=== PATIENT | female | born 1985 | race Caucasian/White ===

== ENCOUNTER 2016-06-22 15:16 | Inpatient (IN) | payer SELFPAY ==
[~2016-06-22] VITALS: Ht 152.4 cm; Wt 75.1 kg
[~2016-06-22 15:16] MED LIST: FER325 PO; IBUP800T25 PO
[2016-06-22 15:29] VITALS: Ht 152.4 cm; Wt 75.1 kg
[2016-06-22 15:30] VITALS: BP 112/66; PULSE 88; RESP 19
[2016-06-22] MEDS ORDERED: LACTATED RINGER'S 1,000 ML IV ONE (16:30)
[2016-06-22 16:44] LABS: BASOPHILS % 0.3 % (0.0-2.0); EOSINOPHILS # 0.1 10^3/ul (0.0-0.5); EOSINOPHILS % 0.6 % (0.0-7.0); HEMATOCRIT 32.4 % (37.0-47.0); HEMOGLOBIN 10.9 g/dl (12.0-16.0); LYMPHOCYTES # 2.4 10^3/ul (0.8-2.9); LYMPHOCYTES % 23.2 % (15.0-51.0); MEAN CORPUSCULAR HEMOGLOBIN 30.2 pg (29.0-33.0); MEAN CORPUSCULAR HGB CONC 33.6 g/dl (32.0-37.0); MEAN PLATELET VOLUME 9.6 fl (7.4-10.4); MONOCYTE # 0.5 10^3/ul (0.3-0.9); MONOCYTES % 4.9 % (0.0-11.0); NEUTROPHIL # 7.3 10^3/ul (1.6-7.5); PLATELET COUNT 201 10^3/UL (140-440); UNCORRECTED WBC 10.4 10^3/ul (4.8-10.8); WHITE BLOOD COUNT 10.4 10^3/ul (4.8-10.8)
[2016-06-22 16:45] LABS: CONDITION 1
[2016-06-22 16:52] LABS: INR 0.91; PROTIME 12.2 Sec (12.2-14.2)
[2016-06-22 16:53] LABS: PARTIAL THROMBOPLASTIN TIME 28.1 Sec (25.0-35.0)
[2016-06-22] MEDS ORDERED: TERBUTALINE 1 ML ONE (16:53)
[2016-06-22] MEDS ORDERED: TERBUTALINE 1 MG/ML INJ SC ONE ×2 (17:00→18:30)
[2016-06-22] MEDS ORDERED: OXYTOCIN 30 UNITS/LR 500 ML IV SCH (19:30)
[2016-06-22] MEDS ORDERED: MISOPROSTOL 200 MCG TAB PR PRN (19:30)
[2016-06-22] MEDS ORDERED: OXYTOCIN 30 UNITS/LR 500 ML IV PRN (19:30)
[2016-06-22] MEDS ORDERED: METHYLERGONOVINE 0.2 MG INJ IM PRN (19:30)
[2016-06-22] MEDS ORDERED: CARBOPROST 250 MCG INJ IM PRN (19:30)
[2016-06-22] MEDS: NIFEdipine 10 MG CAP PO SCH (21:41)
[2016-06-23] MEDS: LACTATED RINGER'S 1,000 ML IV SCH ×3 (00:08→14:23)
[2016-06-23] MEDS: NIFEdipine 10 MG CAP PO SCH ×4 (03:45→17:44)
[2016-06-23] MEDS ORDERED: ACETAMINOPHEN 500 MG TAB PO ONE (05:27)
--- NOTE | 2016-06-23 14:29 | HP ---
Date/Time of Note Date/Time of Note DATE: 06/23/16 TIME: 14:24 OB - History Hx of Present Free Text/Dictation admitted at 36.5 weeks with previous C/S X 2 wirh labor pains Chief Complaint: labor pains Estimated Due Date: Jul 18, 2016 : 5 Para: 3 Spontaneous : 1 Care: Good Care Ultrasounds: Normal mid trimester US Obstetrical Complications: None, Other (partial posterior placenta previa ) Medical Complications: Other (previous C/S X 2 ) Past Family/Social History * Past Medical, Surgical, Family and Obstetric Histories reviewed from chart. Blood Type: A+ Rubella: immune RPR/VDRL: Negative GBS Status: Negative HBsAG: Negative OB Admission Exam Vital Signs Vital Signs Vital Signs Date Time Temp Pulse Resp B/P Pulse Ox O2 Delivery O2 Flow Rate FiO2 06/22/16 15:30 98.2 88 19 112/66 Room Air Physical Exam HEENT: WNL Heart: Rhythm Normal Lungs: Clear, Equal Abdomen: WNL Extremities: Normal Reflexes: Normal Membranes: Intact Heart Rate: 150's Accelerations: Accelerations Present Decelerations: No Decelerations Varibility: Marked Contractions on Admission: 6-10 Minutes Apart Date/Time Contractions Began: 06/22/2015 Frequency of Contractions: q5 Duration: >60 seconds Last 72 hours Lab Results CBC & BMP 06/22/16 16:22 OB Assessment/Plan Reason for admission: labor Other Assessment: 36.5 weeks gestation previous C/S X 2 Other plan: try soft tocolysis: Nifedipine NADIR WALTON MD Jun 23, 2016 14:29
[2016-06-23] MEDS ORDERED: BETAMET NA PHOS/AC(6 MG/ML) 5ML INJ IM SCH (14:30)
--- NOTE | 2016-06-23 17:36 | DS ---
Date/Time of Note Date/Time of Note DATE: 06/23/16 TIME: 17:34 Obstetrical Discharge Record Final Diagnosis Final Diagnosis: not delivered Other Final Diagnosis uterine contractions Complications Tocolytics: Terbutaline, Other (Nifedipine ) Condition on Discharge Physical Assessment Last Vitals: se nurses notes Voiding: Yes Bowel Movement: Yes Breast: Soft, non-tender, Filling Fundus: Other (Gravid ) Abdomen and Incision: Gravid Episiotomy: NA Calf Tenderness: No Patient Condition: Good (patient stopped UCs . Will D/C home on PO Nifedipine ) NADIR WALTON MD Jun 23, 2016 17:36
--- NOTE | 2016-06-23 17:38 | PD.PPDC ---
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 Will D/C home on PO Nifedipine ) Diet Diet: Resume Regular Diet Activity/Restrictions Activity: Bedrest May Shower Restrictions: No Exercising Nothing in the Vagina Return to Work or School: October 18, 2016 Follow-up Follow-up with Physician: 1, Day/Days Provider Information: in clinic for F/U Return to clinic for [employer] Instructions: Worsening abdominal pain Excessive Vaginal Bleeding NADIR WALTON MD Jun 23, 2016 17:38
[2016-06-23] MEDS ORDERED: NIFEdipine PO (17:39)
== END 2016-06-23 18:00 | disposition home or self-care (01) | DRG 778 ==
LOC: OBT 15:16 → L-D 15:18 → OBT 19:05 → L-D 19:05
PROVIDERS: ADMIT Obstetrics & Gynecology; ATTEND Obstetrics & Gynecology
DX: O60.03 Preterm labor without delivery, third trimester (principal)
CPT/HCPCS: 85025; 85610; 85730; 86592; 86850; 86900; 86901; G0463; J0702; J3105; J7120

== ENCOUNTER 2016-06-24 13:00 | Outpatient (CLI) | payer MEDICAID ==
[~2016-06-24] VITALS: Ht 152.4 cm; Wt 75.9 kg
[~2016-06-24 13:00] MED LIST changes: -IBUP800T25 PO; +NIFEdipine PO
[2016-06-24 13:39] VITALS: Ht 152.4 cm; Wt 75.9 kg
[2016-06-24 13:40] VITALS: BP 98/56; PULSE 89; RESP 18
[2016-06-24] MEDS ORDERED: NIFEdipine 10 MG CAP PO STA (14:33)
--- NOTE | 2016-06-24 14:44 | RADRPT ---
PROCEDURE: US OB CLINICAL INDICATION: Decelerations, estimated weight, amniotic fluid TECHNIQUE: Multiple sonographic images of the pelvis were obtained. The images were reviewed on a PACS workstation. COMPARISON: Obstetrical ultrasound from 04/22/2016 FINDINGS: The cervix is not well visualized. There is a single viable intrauterine gestation. Cardiac activity is present with 128 beats per minute. There is a vertex presentation. The placenta is right lateral in location. There is no evidence for an abruption or placenta previa. There is a subjectively normal amount of amniotic fluid. Measurements were made in order to determine age. The results are as follows (cm): BPD =8.95 HC =31.53 AC =33.71 FL =7.21 Estimated gestational age by ultrasound of approximately 36 weeks, 4 days. The estimated date of delivery by ultrasound is 07/18/2016. Reported gestational age by LMP of approximately 37 weeks, 0 days. The reported date of delivery by LMP is 07/15/2016. EFW = 3096 grams (57th percentile) IMPRESSION: Single viable intrauterine gestation of approximately 36 weeks, 4 days . The estimated date of delivery is 07/18/2016 . Dating by ultrasound is within 3 days of dating by LMP. Estimated weight in the 57th percentile. There is a subjectively normal amount of amniotic fluid. RPTAT: EE Physician Rachel Date Time Electronically viewed and signed by Physician Rachel on 06/24/2016 14:44 RA/
--- NOTE | 2016-06-24 14:48 | QN ---
Documentation Comment 30 y/o female sent in from clinic because of low baseline FHTs at 37 weeks NST R DANELLE nl will repeat C/S at 39 weeks NADIR WALTON MD Jun 24, 2016 14:48
--- NOTE | 2016-06-24 14:51 | RADRPT ---
PROCEDURE: US OB biophysical profile. CLINICAL INDICATION: Decelerations TECHNIQUE: Multiple sonographic images of the pelvis were obtained. The images were reviewed on a PACS workstation. COMPARISON: No prior studies are available for comparison. FINDINGS: There is a single viable intrauterine gestation. Cardiac activity is present with 128 beats per min [place]. There is a vertex presentation. The placenta is right lateral in location. There is no evidence of placental abruption. There is a normal amount of amniotic fluid with an DANELLE = 15.1 cm. Biophysical profile: movement 2/2 tone 2/2. breathing 2/2 DANELLE 2/2 Total 01/25 RPTAT: AA . IMPRESSION: Normal biophysical profile. Normal DANELLE of 15.1 cm. Physician Rachel Date Time Electronically viewed and signed by Physician Rachel on 06/24/2016 14:51 /
--- NOTE | 2016-06-24 15:40 | TRIAGE ---
OB Triage Datetime Report Generated by CPN: 06/24/2016 15:40 Datetime: 06/24/2016 15:26 Stage of : OB Triage Labor Evaluation Frequency: x2 Monitor Mode: External Duration (sec)2399: 120-130 Quality: Mild Resting Tone [place]: Relaxed Heart Rate FHR Baseline Rate: 120 Monitor Mode: External US FHR Baseline Changes: No Baseline Change Variability: Moderate 6-25 bpm Accelerations: 15X15 Decelerations: None Category: Category I Datetime: 06/24/2016 14:51 Stage of : OB Triage Datetime: 06/24/2016 14:48 Stage of : OB Triage Monitor Mode: External Monitor Mode: External US Datetime: 06/24/2016 14:43 Stage of : OB Triage Datetime: 06/24/2016 14:17 Stage of : OB Triage Datetime: 06/24/2016 14:00 Stage of : OB Triage Labor Evaluation Frequency: x3 Monitor Mode: External Duration (sec)2399: 50-110 Quality: Mild Resting Tone [place]: Relaxed Heart Rate FHR Baseline Rate: 120 Monitor Mode: External US Variability: Moderate 6-25 bpm Accelerations: 15X15 Decelerations: None Category: Category I Datetime: 06/24/2016 13:34 Monitor Mode: External Monitor Mode: External US Datetime: 06/24/2016 13:22 Monitor Mode: External Contraction Comments: TOCO changed Datetime: 06/24/2016 13:17 Assessment Type: Triage Maternal Assessment Level of Consciousness: Fully Conscious DTR's/Clonus: DTRs 1+; No Clonus Headache: Denies Blurred Vision: No Respiratory Effort: Unlabored Breath Sounds, Left: Clear and Equal Breath Sounds, Right: Clear and Equal Nausea/Vomiting: Denies RUQ Epigastric Pain: Denies Lower Extremities Edema: None Degree: None Upper Extremities Edema: None Degree: None Facial Edema: None Fall Risk Assessment History of Falling: (0) No Secondary Diagnosis: (15) Yes (Annotations: cs x 2 placenta previa) Ambulatory Aid: (0) Bedrest/Nurse Assist IV Therapy: (0) No Gait: (0) Normal/Bedrest/Immobile Mental Status: (0) Oriented to Own Ability Fall Score: 15 Fall Risk Score Definition: No Risk: No action required Datetime: 06/24/2016 13:16 Time of Arrival: 06/24/2016 12:49 EGA: 37.0 Arrived By: Ambulatory Arrived From: Dr. Valle Chief Complaint: Sent from clinic with orders rt audible decels x2. hX of placenta previa this pre gnancy Movement: Present Contractions: Denies/Absent Rupture of Membranes: Denies Vaginal Bleeding: None Vaginal Discharge: Denies Recent Sexual Intercouse: Denies Abdominal Trauma: Not Applicable Patient Complaints: Other Time Provider Notified: 06/24/2016 12:49 Provider Notified: THUY Initial Plan: VS, Prolonged efm, efw, bennie, placenta location Datetime: 06/24/2016 13:09 Monitor Mode: External Datetime: 06/24/2016 13:05 Stage of : OB Triage Monitor Mode: External US Datetime: 06/23/2016 17:44 Labor Evaluation Frequency: X2 Monitor Mode: External Quality: Moderate Pattern: Normal: <= 5 Contractions in 10 Minutes Resting Tone [place]: Relaxed Heart Rate FHR Baseline Rate: 150 Monitor Mode: External US Variability: Moderate 6-25 bpm Accelerations: 15X15 Decelerations: None Category: Category I Datetime: 06/23/2016 17:00 Stage of : Labor Labor Evaluation Frequency: x2 Monitor Mode: External Duration (sec)2399: 90-100 Quality: Strong Pattern: Normal: <= 5 Contractions in 10 Minutes Resting Tone [place]: Relaxed Heart Rate FHR Baseline Rate: 150 Monitor Mode: External US Variability: Moderate 6-25 bpm Accelerations: 15X15 Decelerations: None Category: Category I Datetime: 06/23/2016 16:00 Stage of : Labor Labor Evaluation Frequency: x2 Monitor Mode: External Duration (sec)2399: 90-100 Quality: Strong Pattern: Normal: <= 5 Contractions in 10 Minutes Resting Tone [place]: Relaxed Heart Rate FHR Baseline Rate: 150 Monitor Mode: External US Variability: Moderate 6-25 bpm Accelerations: 15X15 Decelerations: None Category: Category I Datetime: 06/23/2016 15:00 Stage of : Labor Labor Evaluation Frequency: x3 Monitor Mode: External Duration (sec)2399: 90-100 Quality: Strong Pattern: Normal: <= 5 Contractions in 10 Minutes Resting Tone [place]: Relaxed Heart Rate FHR Baseline Rate: 145 Monitor Mode: External US Variability: Moderate 6-25 bpm Accelerations: 15X15 Decelerations: None Category: Category I Datetime: 06/23/2016 14:00 Stage of : Labor Labor Evaluation Frequency: x3 Monitor Mode: External Duration (sec)2399: 90-100 Quality: Strong Pattern: Normal: <= 5 Contractions in 10 Minutes Resting Tone [place]: Relaxed Heart Rate FHR Baseline Rate: 140 Monitor Mode: External US Variability: Moderate 6-25 bpm Accelerations: 15X15 Decelerations: None Category: Category I Datetime: 06/23/2016 13:00 Stage of : Labor Temperature Route: Oral Labor Evaluation Frequency: x3 Monitor Mode: External Duration (sec)2399: 90-100 Quality: Strong Pattern: Normal: <= 5 Contractions in 10 Minutes Resting Tone [place]: Relaxed Heart Rate FHR Baseline Rate: 145 Monitor Mode: External US Variability: Moderate 6-25 bpm Accelerations: 15X15 Decelerations: None Category: Category I Datetime: 06/23/2016 12:01 Stage of : Labor Labor Evaluation Frequency: x2 Monitor Mode: External Duration (sec)2399: 100-120 Quality: Strong Pattern: Normal: <= 5 Contractions in 10 Minutes Resting Tone [place]: Relaxed Heart Rate FHR Baseline Rate: 140 Monitor Mode: External US Variability: Moderate 6-25 bpm Accelerations: 15X15 Decelerations: None Category: Category II Datetime: 06/23/2016 11:00 Stage of : Labor Labor Evaluation Frequency: x2 Monitor Mode: External Duration (sec)2399: 100-120 Quality: Strong Pattern: Normal: <= 5 Contractions in 10 Minutes Resting Tone [place]: Relaxed Heart Rate FHR Baseline Rate: 145 Monitor Mode: External US Variability: Moderate 6-25 bpm Accelerations: 15X15 Decelerations: Variable Category: Category II Pain Presence: Intermittent Pain Type: Contraction Pain Location: Abdomen Pain Relief Measures: Comfort Measures Pain Assessment Comments: pt states that she feels better at this moment. will let me know if ther e if pain becomes greater Datetime: 06/23/2016 10:24 Stage of : Antepartum Datetime: 06/23/2016 10:00 Stage of : Labor Labor Evaluation Frequency: 07-10 Monitor Mode: External Duration (sec)2399: 100 Quality: Strong Pattern: Normal: <= 5 Contractions in 10 Minutes Resting Tone [place]: Relaxed Heart Rate FHR Baseline Rate: 145 Monitor Mode: External US Variability: Moderate 6-25 bpm Accelerations: 15X15 Decelerations: None Category: Category I Pain Assessment Pain Scale: 7 Pain Presence: Intermittent Pain Type: Contraction Pain Location: Abdomen Pain Relief Measures: Comfort Measures Datetime: 06/23/2016 09:00 Stage of : Labor Labor Evaluation Frequency: 10-14 Monitor Mode: External Duration (sec)2399: 90 Quality: Strong Pattern: Normal: <= 5 Contractions in 10 Minutes Resting Tone [place]: Relaxed Heart Rate FHR Baseline Rate: 140 Monitor Mode: External US Variability: Moderate 6-25 bpm Accelerations: 15X15 Decelerations: None Category: Category I Pain Assessment Pain Scale: 7 Pain Presence: Intermittent Pain Type: Contraction Pain Location: Abdomen Pain Relief Measures: Comfort Measures Datetime: 06/23/2016 08:02 Stage of : Labor Assessment Type: Ongoing Assessment Maternal Assessment Level of Consciousness: Fully Conscious DTR's/Clonus: DTRs 2+; No Clonus Headache: Denies Blurred Vision: No Respiratory Effort: Unlabored; Regular Rhythm; Equal Expansion Breath Sounds, Left: Clear and Equal Breath Sounds, Right: Clear and Equal Nausea/Vomiting: Denies RUQ Epigastric Pain: Denies Lower Extremities Edema: None Degree: None Upper Extremities Edema: None Degree: None Facial Edema: None Temperature Route: Oral Fall Risk Assessment History of Falling: (0) No Secondary Diagnosis: (0) No Ambulatory Aid: (0) Bedrest/Nurse Assist IV Therapy: (0) No Gait: (0) Normal/Bedrest/Immobile Mental Status: (0) Oriented to Own Ability Fall Score: 0 Fall Risk Score Definition: No Risk: No action required Labor Evaluation Frequency: 10-14 Monitor Mode: External Duration (sec)2399: 90 Quality: Strong Pattern: Normal: <= 5 Contractions in 10 Minutes Resting Tone [place]: Relaxed Heart Rate FHR Baseline Rate: 145 Monitor Mode: External US Variability: Moderate 6-25 bpm Accelerations: 15X15 Decelerations: None Category: Category I Pain Assessment Pain Scale: 7 Pain Presence: Intermittent Pain Type: Contraction Pain Location: Abdomen Pain Relief Measures: Comfort Measures Datetime: 06/23/2016 07:11 Stage of : Labor Labor Evaluation Frequency: 2-5 Monitor Mode: External Duration (sec)2399: 80-180 Quality: Mild Pattern: Normal: <= 5 Contractions in 10 Minutes Resting Tone [place]: Relaxed Heart Rate FHR Baseline Rate: 135 Monitor Mode: External US FHR Baseline Changes: No Baseline Change Variability: Moderate 6-25 bpm Accelerations: 15X15 Decelerations: None Category: Category I Datetime: 06/23/2016 06:09 Stage of : Labor Labor Evaluation Frequency: 2-5 Monitor Mode: External Duration (sec)2399: 80-180 Quality: Mild Pattern: Normal: <= 5 Contractions in 10 Minutes Resting Tone [place]: Relaxed Heart Rate FHR Baseline Rate: 135 Monitor Mode: External US FHR Baseline Changes: No Baseline Change Variability: Moderate 6-25 bpm Accelerations: 15X15 Decelerations: None Category: Category I Datetime: 06/23/2016 05:09 Stage of : Labor Labor Evaluation Frequency: 2-5 Monitor Mode: External Duration (sec)2399: 80-180 Quality: Mild Pattern: Normal: <= 5 Contractions in 10 Minutes Resting Tone [place]: Relaxed Heart Rate FHR Baseline Rate: 135 Monitor Mode: External US Variability: Moderate 6-25 bpm Accelerations: 15X15 Decelerations: None Category: Category I Datetime: 06/23/2016 04:10 Stage of : Labor Labor Evaluation Frequency: 2-5 Monitor Mode: External Duration (sec)2399: 80-180 Quality: Mild Pattern: Normal: <= 5 Contractions in 10 Minutes Resting Tone [place]: Relaxed Heart Rate FHR Baseline Rate: 135 Monitor Mode: External US Variability: Moderate 6-25 bpm Accelerations: 15X15 Decelerations: None Category: Category I Datetime: 06/23/2016 03:11 Stage of : Labor Labor Evaluation Frequency: 2-5 Monitor Mode: External Duration (sec)2399: 80-180 Quality: Mild Pattern: Normal: <= 5 Contractions in 10 Minutes Resting Tone [place]: Relaxed Heart Rate FHR Baseline Rate: 135 Monitor Mode: External US Variability: Moderate 6-25 bpm Accelerations: 15X15 Decelerations: None Category: Category I Datetime: 06/23/2016 02:00 Labor Evaluation Frequency: 2-5 Monitor Mode: External Duration (sec)2399: 80-180 Quality: Mild Pattern: Normal: <= 5 Contractions in 10 Minutes Resting Tone [place]: Relaxed Heart Rate FHR Baseline Rate: 135 Monitor Mode: External US Variability: Moderate 6-25 bpm Accelerations: 15X15 Decelerations: None Category: Category I Datetime: 06/23/2016 01:00 Monitor Mode: External Quality: Mild Pattern: Normal: <= 5 Contractions in 10 Minutes Resting Tone [place]: Relaxed Heart Rate FHR Baseline Rate: 135 Monitor Mode: External US FHR Baseline Changes: No Baseline Change Variability: Moderate 6-25 bpm Accelerations: 15X15 Decelerations: None Category: Category I Datetime: 06/23/2016 00:00 Labor Evaluation Frequency: 4-9 Monitor Mode: External Duration (sec)2399: 90-130 Quality: Mild Pattern: Normal: <= 5 Contractions in 10 Minutes Resting Tone [place]: Relaxed Heart Rate FHR Baseline Rate: 145 Monitor Mode: External US FHR Baseline Changes: No Baseline Change Variability: Moderate 6-25 bpm Accelerations: 15X15 Decelerations: None Category: Category I Datetime: 06/22/2016 23:09 Stage of : Labor Maternal Assessment Level of Consciousness: Fully Conscious DTR's/Clonus: DTRs 2+; No Clonus Headache: Denies Breath Sounds, Left: Clear and Equal Breath Sounds, Right: Clear and Equal Nausea/Vomiting: Denies RUQ Epigastric Pain: Denies Labor Evaluation Frequency: 7-10 Monitor Mode: External Duration (sec)2399: 90-160 Quality: Moderate Pattern: Normal: <= 5 Contractions in 10 Minutes Resting Tone [place]: Relaxed Heart Rate FHR Baseline Rate: 155 Monitor Mode: External US FHR Baseline Changes: No Baseline Change Variability: Moderate 6-25 bpm Accelerations: 15X15 Decelerations: None Category: Category I Datetime: 06/22/2016 22:09 Stage of : Labor Maternal Assessment Level of Consciousness: Fully Conscious DTR's/Clonus: DTRs 2+; No Clonus Headache: Denies Breath Sounds, Left: Clear and Equal Breath Sounds, Right: Clear and Equal Nausea/Vomiting: Denies RUQ Epigastric Pain: Denies Temperature Route: Oral Labor Evaluation Frequency: 7-10 Monitor Mode: External Duration (sec)2399: 90-160 Quality: Moderate Pattern: Normal: <= 5 Contractions in 10 Minutes Resting Tone [place]: Relaxed Heart Rate FHR Baseline Rate: 150 Monitor Mode: External US FHR Baseline Changes: No Baseline Change Variability: Moderate 6-25 bpm Accelerations: 15X15 Decelerations: None Category: Category I Datetime: 06/22/2016 21:00 Stage of : Labor Maternal Assessment Level of Consciousness: Fully Conscious DTR's/Clonus: DTRs 2+; No Clonus Headache: Denies Breath Sounds, Left: Clear and Equal Breath Sounds, Right: Clear and Equal Nausea/Vomiting: Denies RUQ Epigastric Pain: Denies Temperature Route: Oral Labor Evaluation Frequency: IRREG Monitor Mode: External Duration (sec)2399: 60-90 Quality: Moderate Pattern: Normal: <= 5 Contractions in 10 Minutes Resting Tone [place]: Relaxed Heart Rate FHR Baseline Rate: 150 Monitor Mode: External US FHR Baseline Changes: No Baseline Change Variability: Moderate 6-25 bpm Accelerations: 15X15 Decelerations: None Category: Category I Datetime: 06/22/2016 20:00 Stage of : Labor Assessment Type: Admission Assessment Maternal Assessment Level of Consciousness: Fully Conscious DTR's/Clonus: DTRs 2+; No Clonus Headache: Denies Blurred Vision: No Respiratory Effort: Unlabored; Regular Rhythm; Equal Expansion Breath Sounds, Left: Clear and Equal Breath Sounds, Right: Clear and Equal Nausea/Vomiting: Denies RUQ Epigastric Pain: Denies Lower Extremities Edema: None Degree: None Upper Extremities Edema: None Degree: None Facial Edema: None Temperature Route: Oral Fall Risk Assessment History of Falling: (0) No Secondary Diagnosis: (0) No Ambulatory Aid: (0) Bedrest/Nurse Assist IV Therapy: (0) No Gait: (0) Normal/Bedrest/Immobile Mental Status: (0) Oriented to Own Ability Fall Score: 0 Fall Risk Score Definition: No Risk: No action required Labor Evaluation Frequency: IRREG Monitor Mode: External Duration (sec)2399: 60-90 Quality: Moderate Pattern: Normal: <= 5 Contractions in 10 Minutes Resting Tone [place]: Relaxed Heart Rate FHR Baseline Rate: 150 Monitor Mode: External US FHR Baseline Changes: No Baseline Change Variability: Moderate 6-25 bpm Accelerations: 15X15 Decelerations: None Category: Category I Datetime: 06/22/2016 19:08 Stage of : OB Triage Datetime: 06/22/2016 19:00 Stage of : OB Triage Maternal Assessment Level of Consciousness: Fully Conscious DTR's/Clonus: DTRs 1+ Headache: Denies Nausea/Vomiting: Denies RUQ Epigastric Pain: Denies Labor Evaluation Frequency: X5 Monitor Mode: External Duration (sec)2399: 60-90 Quality: Mild Pattern: Normal: <= 5 Contractions in 10 Minutes Resting Tone [place]: Relaxed Heart Rate FHR Baseline Rate: 125 Monitor Mode: External US Variability: Moderate 6-25 bpm Accelerations: 15X15 Decelerations: None Category: Category I Pain Assessment Pain Scale: 3 Pain Presence: Intermittent Pain Type: Contraction Pain Location: Back Pain Goal: 3 Pain Relief Measures: Pain Medication Given Vaginal Exam Membrane Status: Intact Datetime: 06/22/2016 18:00 Stage of : OB Triage Maternal Assessment Level of Consciousness: Fully Conscious DTR's/Clonus: DTRs 1+ Headache: Denies Nausea/Vomiting: Denies RUQ Epigastric Pain: Denies Labor Evaluation Frequency: X5 Monitor Mode: External Duration (sec)2399: 60-90 Quality: Mild Pattern: Normal: <= 5 Contractions in 10 Minutes Resting Tone [place]: Relaxed Heart Rate FHR Baseline Rate: 125 Monitor Mode: External US Variability: Moderate 6-25 bpm Accelerations: 15X15 Decelerations: None Category: Category I Pain Assessment Pain Scale: 3 Pain Presence: Intermittent Pain Type: Contraction Pain Location: Back Pain Goal: 3 Pain Relief Measures: Pain Medication Given Vaginal Exam Membrane Status: Intact Datetime: 06/22/2016 17:00 Stage of : OB Triage Maternal Assessment Level of Consciousness: Fully Conscious DTR's/Clonus: DTRs 1+ Headache: Denies Nausea/Vomiting: Denies RUQ Epigastric Pain: Denies Labor Evaluation Frequency: 2-4 Monitor Mode: External Duration (sec)2399: 60-90 Quality: Mild Pattern: Normal: <= 5 Contractions in 10 Minutes Resting Tone [place]: Relaxed Heart Rate FHR Baseline Rate: 125 Monitor Mode: External US Variability: Moderate 6-25 bpm Accelerations: 15X15 Decelerations: None Category: Category I Pain Assessment Pain Scale: 3 Pain Presence: Intermittent Pain Type: Contraction Pain Location: Back Pain Goal: 3 Pain Relief Measures: Pain Medication Given Vaginal Exam Membrane Status: Intact Datetime: 06/22/2016 16:28 Stage of : OB Triage Maternal Assessment Level of Consciousness: Fully Conscious DTR's/Clonus: DTRs 1+ Headache: Denies Nausea/Vomiting: Denies RUQ Epigastric Pain: Denies Labor Evaluation Frequency: 2-4 Monitor Mode: External Duration (sec)2399: 60-90 Quality: Mild Pattern: Normal: <= 5 Contractions in 10 Minutes Resting Tone [place]: Relaxed Heart Rate FHR Baseline Rate: 125 Monitor Mode: External US Variability: Moderate 6-25 bpm Accelerations: 15X15 Decelerations: None Category: Category I Pain Assessment Pain Scale: 4 Pain Presence: Intermittent Pain Type: Contraction Pain Location: Back Pain Goal: 3 Pain Relief Measures: Pain Medication Given Vaginal Exam Membrane Status: Intact Datetime: 06/22/2016 15:56 Maternal Assessment Level of Consciousness: Fully Conscious DTR's/Clonus: DTRs 1+ Headache: Denies Blurred Vision: No Nausea/Vomiting: Denies RUQ Epigastric Pain: Denies Facial Edema: None Labor Evaluation Frequency: 3-4 Monitor Mode: External Duration (sec)2399: 60-80 Quality: Mild Pattern: Normal: <= 5 Contractions in 10 Minutes Resting Tone [place]: Relaxed Heart Rate FHR Baseline Rate: 125 Monitor Mode: External US Variability: Moderate 6-25 bpm Accelerations: 15X15 Decelerations: None Category: Category I Pain Assessment Pain Scale: 4 Pain Presence: Intermittent Pain Type: Contraction Pain Location: Back Pain Goal: 3 Pain Relief Measures: Pain Medication Given Vaginal Exam Membrane Status: Intact Datetime: 06/22/2016 15:55 Stage of : OB Triage Datetime: 06/22/2016 15:24 Assessment Type: Triage Maternal Assessment Level of Consciousness: Fully Conscious DTR's/Clonus: DTRs 2+; No Clonus Headache: Denies Blurred Vision: No Respiratory Effort: Unlabored; Regular Rhythm; Equal Expansion Breath Sounds, Left: Clear and Equal Breath Sounds, Right: Clear and Equal Nausea/Vomiting: Denies RUQ Epigastric Pain: Denies Lower Extremities Edema: None Degree: None Upper Extremities Edema: None Degree: None Facial Edema: None Fall Risk Assessment History of Falling: (0) No Secondary Diagnosis: (0) No Ambulatory Aid: (0) Bedrest/Nurse Assist IV Therapy: (0) No Gait: (0) Normal/Bedrest/Immobile Mental Status: (0) Oriented to Own Ability Fall Score: 0 Fall Risk Score Definition: No Risk: No action required Datetime: 06/22/2016 15:21 Time of Arrival: 06/22/2016 19:30 EGA: 36.5 Arrived By: Ambulatory Datetime: 06/22/2016 15:05 Time of Arrival: 06/22/2016 15:05 Arrived By: Ambulatory Arrived From: Office Chief Complaint: pt came in c/o craamping since this am Movement: Present Contractions: Irregular Time Contractions Began: 06/22/2016 03:00 Rupture of Membranes: Denies Vaginal Discharge: Denies Recent Sexual Intercouse: Denies Abdominal Trauma: Not Applicable Patient Complaints: Cramping Additional Patient Complaints: none Initial Plan: monitor
== END 2016-06-24 15:34 | disposition home or self-care (01) ==
LOC: OBT 13:00 → L-D 13:00 → OBT 15:34
PROVIDERS: ATTEND Obstetrics & Gynecology
DX: O76 Abnormality in fetal heart rate and rhythm complicating labor and delivery (principal); O34.219 Maternal care for unspecified type scar from previous cesarean delivery; Z3A.37 37 weeks gestation of pregnancy
CPT/HCPCS: 76815; 76818; Z7500; Z7610; G0463

== ENCOUNTER 2016-06-30 21:57 | Inpatient (IN) | payer MEDICAID ==
[~2016-06-30] VITALS: Ht 152.4 cm; Wt 76.6 kg
[2016-06-30 22:28] VITALS: Ht 152.4 cm; Wt 76.6 kg
[2016-06-30 22:29] VITALS: BP 115/62; PULSE 92; RESP 18
[2016-06-30] MEDS ORDERED: PREN1TAB62 PO (22:33)
[2016-06-30] MEDS ORDERED: CITRACAL PO (22:34)
[2016-06-30] MEDS: LACTATED RINGER'S 1,000 ML IV SCH (23:45)
[2016-07-01 00:12] LABS: BASOPHILS % 0.3 % (0.0-2.0); EOSINOPHILS # 0.1 10^3/ul (0.0-0.5); EOSINOPHILS % 1.3 % (0.0-7.0); HEMATOCRIT 30.9 % (37.0-47.0); HEMOGLOBIN 10.7 g/dl (12.0-16.0); LYMPHOCYTES # 2.9 10^3/ul (0.8-2.9); LYMPHOCYTES % 27.7 % (15.0-51.0); MEAN CORPUSCULAR HEMOGLOBIN 30.9 pg (29.0-33.0); MEAN CORPUSCULAR HGB CONC 34.5 g/dl (32.0-37.0); MEAN CORPUSCULAR VOLUME 89.6 fl (82.0-101.0); MEAN PLATELET VOLUME 9.1 fl (7.4-10.4); MONOCYTE # 0.7 10^3/ul (0.3-0.9); MONOCYTES % 6.9 % (0.0-11.0); NEUTROPHIL # 6.7 10^3/ul (1.6-7.5); NEUTROPHILS % 63.8 % (39.0-77.0); PLATELET COUNT 227 10^3/UL (140-440); RED BLOOD COUNT 3.45 10^6/ul (4.20-5.40); RED CELL DISTRIBUTION WIDTH 13.9 % (11.5-14.5); UNCORRECTED WBC 10.5 10^3/ul (4.8-10.8); WHITE BLOOD COUNT 10.5 10^3/ul (4.8-10.8)
[2016-07-01 00:14] LABS: CONDITION 1
[2016-07-01] MEDS ORDERED: OXYTOCIN 30 UNITS/LR 500 ML IV PRN ×2 (01:00→13:00)
[2016-07-01] MEDS ORDERED: CARBOPROST 250 MCG INJ IM PRN ×2 (01:00→13:00)
[2016-07-01] MEDS ORDERED: MISOPROSTOL 200 MCG TAB PR PRN ×2 (01:00→13:00)
[2016-07-01] MEDS ORDERED: OXYTOCIN 30 UNITS/LR 500 ML IV SCH (01:00)
[2016-07-01] MEDS ORDERED: METHYLERGONOVINE 0.2 MG INJ IM PRN ×2 (01:00→13:00)
[2016-07-01] MEDS ORDERED: CEFAZOLIN 2 GM/50 ML (PMX) 50 ML IV SCH (01:00)
[2016-07-01 01:28] LABS: INR 0.96; PROTIME 12.8 Sec (12.2-14.2)
[2016-07-01 01:29] LABS: PARTIAL THROMBOPLASTIN TIME 28.1 Sec (25.0-35.0)
[2016-07-01] MEDS: LACTATED RINGER'S 1,000 ML IV SCH ×6 (02:48→20:40)
--- NOTE | 2016-07-01 02:51 | RADRPT ---
PROCEDURE: ULTRASOUND BIOPHYSICAL PROFILE CLINICAL INDICATION: 30-year-old female with spotting for viability. TECHNIQUE: Multiple sonographic images were obtained in order to perform a biophysical profile The images were reviewed on a PACS workstation. COMPARISON: Ultrasound biophysical profile June 24, 2016. FINDINGS: The cervix appears closed with a length of 3.9 cm measured transvaginally. There is a single viable intrauterine gestation. There is a vertex presentation. Cardiac activity is present at 157 beats p er minute. The placenta is right lateral. The results of the biophysical profile are as follows: breathing movement = 2/2 Gross body movement = 2/2 tone = 2/2 Qualitative amniotic fluid volume = 2/2 Amniotic fluid index equals 12.0 cm. This yields a biophysical profile score of 8/8. IMPRESSION: Biophysical profile score is 8/8. .Favio Mathews MD, Date Time Electronically viewed and signed by .Favio Mathews MD, on 07/01/2016 02:51 .Cori/
[2016-07-01] MEDS ORDERED: TERBUTALINE 1 MG/ML INJ SC ONE (06:30)
[2016-07-01] MEDS ORDERED: AMPICILLIN 2 GM/NS (PMX) 100 ML ONE (07:19)
[2016-07-01] MEDS ORDERED: AMPICILLIN 2 GM/NS (PMX) 100 ML IV ONE (07:30)
[2016-07-01] MEDS ORDERED: PHENYLephrine (100 MCG/ML) 5ML SYG ONE ×3 (08:31→09:42)
[2016-07-01] MEDS ORDERED: FENTAnyl 50 MCG/ML VIAL ONE (08:31)
[2016-07-01] MEDS ORDERED: morphine SULFATE/PF (10 MG/10 ML) INJ ONE (08:31)
[2016-07-01] MEDS ORDERED: ONDANSETRON 4 MG INJ ONE (09:33)
[2016-07-01] MEDS ORDERED: DIPHENHYDRAMINE 50 MG INJ ONE (09:33)
[2016-07-01] MEDS ORDERED: DEXAMETHASONE 4 MG/ML 1 ML INJ ONE (09:33)
[2016-07-01] MEDS ORDERED: MIDAZOLAM 1 MG/ML 2 ML INJ ONE (09:42)
--- NOTE | 2016-07-01 10:09 | HP ---
Date/Time of Note Date/Time of Note DATE: 07/01/16 TIME: 10:02 OB - History Hx of Present Free Text/Dictation admitted in early labor at 38 weeks with previous C/S X2 Chief Complaint: uterine contractions and vaginal bleeding Estimated Due Date: Jul 17, 2016 : 4 Para: 3 Care: Good Care Ultrasounds: Normal mid trimester US Obstetrical Complications: Other (placenta previa: resolved ) Medical Complications: Other (previous C/S X 2 ) Past Family/Social History * Past Medical, Surgical, Family and Obstetric Histories reviewed from chart. Blood Type: A+ Rubella: immune RPR/VDRL: Negative GBS Status: Negative HBsAG: Negative OB Admission Exam Vital Signs Vital Signs Vital Signs Date Time Temp Pulse Resp B/P Pulse Ox O2 Delivery O2 Flow Rate FiO2 06/30/16 22:29 98.1 92 18 115/62 Room Air Physical Exam HEENT: WNL Heart: Rhythm Normal Lungs: Clear, Equal Abdomen: WNL Extremities: Normal Reflexes: Normal Cervical Dilatation: 1cm Effacement: 50% Station: -3 Membranes: Intact Heart Rate: 150's Accelerations: Accelerations Present Decelerations: No Decelerations Varibility: Moderate Contractions on Admission: 6-10 Minutes Apart Date/Time Contractions Began: 06/30/2015 Frequency of Contractions: q 10 Duration: >60 seconds Intensity: Mild Last 72 hours Lab Results CBC & BMP 06/30/16 23:45 OB Assessment/Plan Other Assessment: 37 + weeks gestation previous C/S X 2 labor contractions with changing cervix Other plan: repeat C/S NADIR WALTON MD Jul 01, 2016 10:09
--- NOTE | 2016-07-01 10:12 | OPR ---
Operative Report Planned Procedure Procedure date Jul 01, 2016 Procedure(s) repeat C/S Performed by: NADIR WALTON MD Assisting provider: DEE PAULINO MD Anesthesiologist: ELLEN VILLANUEVA MD Pre-procedure diagnosis term gestation previous C/S X 2 labor pains Anesthesia Type: spinal Procedure Description Under satisfactory anaesthesia a Pfannenstiel incision was made two fingerbreadth above and parallel to the symphysis of pubis around the previous scar and previous scar was removed Incision was extended laterally to the border of the Recti muscles on either sides. Incision was carried down with sharp and blunt dissection until fascia was reached. Anterior Recti muscle fascia was incised in mid portion and incision extended laterally to the border of skin incision. Fascia was mobilized from muscle superiorly and Recti muscles were from midline using sharp and blunt dissection. Peritoneum was visualized; Avoiding bowel and bladder it was incised . Incision was extended superiorly and inferiorly. Bladder blade was placed. Posterior peritoneum covering the lower segment of the uterus and lower segment of the uterus were incised.Low transverse uterine incision was made on lower segment of the uterus. Incision extended laterally to the border of Round Lig. on either sides and baby was delivered from OT. position . Amniotic fluid appeared clear. Cord blood was obtained and cord had 3 vessels . Placenta was delivered spontaneously and appeared intact and complete. Intrauterine cavity was rubbed with a laparotomy sponge. Uterine incision was closed in 2 layers using running stitches of No1 Monocryl. Hemostasis appeared secure. Ovaries and Fallopian tubes were within normal limits. Announcing needle, lap sponge and instrument count to be correct abdomen was closed in layers as follows: Peritoneum and Recti muscles with running stitches of 20 Vicryl. Fascia with running stitch of No 1 PDS. Subcutaneous tissue with running stitches of 20 Chromic and skin was closed using dannie. Patient tolerated the procedure well and was transferred to [facility] in good condition. Post-Procedure Post-procedure diagnosis S/P C/S Findings: Live Baby Specimen removed: No Complications: None Pt Condition post procedure: stable Disposition: PACU Physician Certification I, the undersigned physician, hereby certify that I have discussed the procedure described in this consent form with this patient (or the patient's legal claims service representative), including: * The risk and benefits of the procedure; * Any adverse reactions that may reasonably be expected to occur; * Any alternative efficacious methods of treatment which may be medically viable ; * The potential problems that may occur during recuperation; * Potential for blood transfusion and associated risks/benefits; and * Any research or economic interest I may have regarding this treatment. I further certify that the patient/legally responsible person was encouraged to ask question and that all questions were answered. NADIR WALTON MD Jul 01, 2016 10:11
[2016-07-01] MEDS ORDERED: ZOLPIDEM 5 MG TAB PO PRN ×2 (10:30→13:30)
[2016-07-01] MEDS ORDERED: DIPHENHYDRAMINE 50 MG INJ IV PRN ×2 (10:30→13:30)
[2016-07-01] MEDS ORDERED: NALOXONE (0.4 MG/ML) INJ IV PRN ×2 (10:30→13:30)
[2016-07-01] MEDS ORDERED: PROCHLORPERAZINE 10 MG INJ IV PRN (10:30)
[2016-07-01] MEDS ORDERED: HYDROmorphONE 1 MG/ML SYG IV PRN ×4 (10:30→13:30)
[2016-07-01] MEDS ORDERED: ONDANSETRON 4 MG INJ IV PRN ×2 (10:30→13:30)
[2016-07-01] MEDS ORDERED: AMPICILLIN 1 GM/NS (PMX) 50 ML IV SCH (11:30)
--- NOTE | 2016-07-01 12:17 | DELSUM ---
Delivery Summary A-C Datetime Report Generated by CPN: 07/01/2016 12:17 DELIVERY PERSONNEL Machine Attendant: Nam, Wenbing MATERNAL INFORMATION Delivery Anesthesia: Spinal Medications in Delivery: see anethesia records Estimated Blood Loss (ml): 800 Placenta Cultured: No Maternal Complications: None LABOR SUMMARY EDC: 07/15/2016 00:00 No. Babies in Womb: 1 Attempted: No Labor Anesthesia: None LABOR INFORMATION Reason for Induction: Not Applicable Oxytocin: N/A Group B Beta Strep: Negative Antibiotics # of Doses: 2 Antibiotics Time of Last Dose: 0915 Steroids Given: Full Course Reason Steroids Not Administered: Not Applicable MEMBRANES Membranes Rupture Method: Artificial Rupture of Membranes: 07/01/2016 09:32 Length of Rupture (hr): 0.00 Amniotic Fluid Color: Clear Amniotic Fluid Amount: Small Amniotic Fluid Odor: Normal STAGES OF LABOR Stage 3 hr: 0 Stage 3 min: 1 CSECTION DELIVERY Primary Indication: Other Other Primary Indication: prev. c/s in labor CSection Urgency: Emergency CSection Incidence: Repeat Labor: Labor Elective: Nonelective CSection Incision: Lower Uterine Transverse BABY A INFORMATION Delivery Date/Time: 07/01/2016 09:32 Method of Delivery: Born in Route : No : N/A Forceps: N/A Vacuum Extraction: N/A Shoulder Dystocia : No SHOULDER DYSTOCIA BABY A Delivery Date/Time: 07/01/2016 09:32 PRESENTATION/POSITION BABY A Presentation: Cephalic Cephalic Presentation: Vertex Vertex Position: Left Occipital Transverse Breech Presentation: N/A PLACENTA INFORMATION BABY A Placenta Delivery Time : 07/01/2016 09:33 Placenta Method of Delivery: Manual Removal Placenta Status: Delivered SCORES BABY A Heart Rate 1 min: >100 bpm Resp Effort 1 min: Good Cry Reflex Irritability 1 min: Cough/Sneeze/Pulls Away Muscle Tone 1 min: Active Motion Color 1 min: Blue/Pale Resuscitation Effort 1 min: Tactile Stimulation SCORE 1 MIN: 8 Heart Rate 5 min: >100 bpm Resp Effort 5 min: Good Cry Reflex Irritability 5 min: Cough/Sneeze/Pulls Away Muscle Tone 5 min: Active Motion Color 5 min: Body [place], Extremit Blue SCORE 5 MIN: 9 INFANT INFORMATION BABY A Gestational Age at Delivery: 38.0 Gestational Status: Early Term- 37- 38.6 Weeks Infant Outcome : Liveborn Condition : Stable Sex: Male IDENTIFICATION/MEDS BABY A ID Band Number: [id number] ID Band Location: Right Leg; Left Arm Sensor Applied: Yes Sensor Number: [id number] Sensor Location : Cord Clamp WEIGHT/LENGTH BABY A Birthweight (gm): 3610 Infant Weight (lb): 7 Infant Weight (oz): 15 Infant Length (in): 20.50 Length (cm): 52.07 CORD INFORMATION BABY A No. 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
--- NOTE | 2016-07-01 12:24 | OPRPT ---
Intraop Record Datetime Report Generated by CPN: 07/01/2016 12:23 Datetime: 07/01/2016 12:15 Sequential Compression Device: Yes Datetime: 07/01/2016 12:00 Sequential Compression Device: Yes Datetime: 07/01/2016 11:46 Sequential Compression Device: Yes Datetime: 07/01/2016 11:30 Sequential Compression Device: Yes Datetime: 07/01/2016 11:15 Sequential Compression Device: Yes Datetime: 07/01/2016 11:00 Sequential Compression Device: Yes Datetime: 07/01/2016 10:45 Sequential Compression Device: Yes Datetime: 07/01/2016 10:30 Sequential Compression Device: Yes Datetime: 07/01/2016 10:16 Sequential Compression Device: Yes Datetime: 07/01/2016 10:10 Sequential Compression Device: Yes Datetime: 07/01/2016 08:22 OR Number: 2 TIMES/PROCEDURE Arrive OR: 07/01/2016 08:55 Depart OR: 07/01/2016 10:07 Anesthesia Start: 07/01/2016 08:55 Anesthesia End: 07/01/2016 10:15 Surgery Start: 07/01/2016 09:27 Surgery End: 07/01/2016 10:01 Preoperative Dx: , 38weeks, prev. c/s in labor Surgical Procedure: Section Uterine Incision: 07/01/2016 09:32 PERSONNEL Surgeon: Josh Cedillo Scrub: Betty Bruce Anesthesia Care Provider: Js Arriaza Care: See Delivery Summary for Care Providers Anesthesia Type: Spinal ASA Level: II RISK FOR INJURY Mode of Arrival: Ambulate Procedure Time Out: Correct Patient Identity; Accurate Procedure Consent Form; Agreement on Procedu re to be Done; Addressed Need to Administer Antibiotics or Fluids for Irrigation; Safety Precautions Based on Patient History or Medication Use; Allergies Reviewed Preoperative Information: Preoperative Checklist Reviewed; Allergies Reviewed; NPO Status Verified RISK FOR ANXIETY/KNOW DEFICIT Emotional Status: Calm/Relaxed Interventions: Provided Education Based on Age and Identified Needs; Communicated Patient Concerns to Appropriate Members of the Health Care Team; Explained Sequence of Events and Perioperative Routi ne; Evaluated Response to Instructions RISK FOR PAIN Pain Teaching: Instructed on Pain Scale Pain Scale: 2.0 PREOPERATIVE OUTCOMES Preoperative Outcomes: Verbalizes/Indicates Decreased Anxiety, Ability to [place], Understanding of Pr ocedure and Sequence of Events. Questions Answered; Demonstrates Adequate Pain Management; Verbaliz es Comfort Related to Transfer/Transport RISK FOR INFECTION Skin Pre-Operative Site: Intact Clip: Clip Clip Location: lower abdominal Prep: Yes Prep By: divyaiu Prep Solution: Chlorohexadine Catheter: Gutiérrez Catheter Size: 16 Catheter Inserted By: wliu Surgical Wound Class: MW-Sgeob-Gsuclaiyhayi Dressing Type: Secured Gauze Risk for Impaired Skin Integrity Position in OR: Supine Bony Prominences Protection: Arms Tucked/Padded Positioning Devices: Wedge Risk for Hypothermia Warming Interventions: Warm [place](s) Risk for Injury Safety Straps Applied: Legs Sequential Compression Device: Yes Electrosurgical Unit: Yes Electrosurgical Unit Number: [id number] Bipolar Number: [id number] EXP 2018-03-09 Ground Pad Location: Right Anterior Thigh Coag Number: 50 Cut Number: 50 1st Count Sponge Count: Correct Needle Count: Correct Blade Count: Correct Instrument Count: Correct 2nd Count Sponge Count: Correct Needle Count: Correct Blade Count: Correct Instrument Count: Correct 3rd Count Sponge Count: Correct Needle Count: Correct Blade Count: Correct Instrument Count: Correct Final Count Sponge Count 4: Correct Needle Count 4: Correct Blade Count 4: Correct Instrument Count 4: Correct Surgeon Acknowledged Count: Yes Final Count Resolution: Count Correct Intraoperative Data Equipment: Non-Invasive Blood Pressure; Pulse Oximeter; EKG; Warming [place] Blood Products Given: No Implants/Prosthesis Implants/Prosthesis: N/A Grafts: N/A Irrigation Irrigants: NACL Specimens Specimens: N/A Cultures Cultures: N/A X-Ray X-Ray Taken: No Postoperative Skin: Warm; Dry Pain Scale: 0 Condition: Awake; Alert Temperature: 98.4 Operative Outcomes: Patient's Surgery Performed Using Aseptic Technique and in a Manner to Prevent Cross-Contamination; Skin Remains Smooth, Intact, Non-reddened, Non-irritated, Free of Bruising; Cor e Body Temperature Remains in Expected Range Transfer To: L_D Datetime: 06/30/2016 22:35 Drug Allergies/Reactions: No Known Allergy (06/30/2016) Datetime: 06/24/2016 13:43 Drug Allergies/Reactions: No Known Allergy (06/24/2016) Datetime: 06/22/2016 15:32 Drug Allergies/Reactions: No Known Allergy (06/22/2016) Datetime: 06/22/2016 15:23 Food Allergies/Reactions: none Latex Allergies/Reactions: No Latex Allergies Datetime: 04/22/2016 11:06 Drug Allergies/Reactions: No Known Allergy (02/07/2015)
--- NOTE | 2016-07-01 12:24 | DELSUM ---
Delivery Summary A-C Datetime Report Generated by CPN: 07/01/2016 12:23 DELIVERY PERSONNEL Plant Controls Specialist: Nam, Wenbing MATERNAL INFORMATION Delivery Anesthesia: Spinal Medications in Delivery: see anethesia records Estimated Blood Loss (ml): 800 Placenta Cultured: No Maternal Complications: None LABOR SUMMARY EDC: 07/15/2016 00:00 No. Babies in Womb: 1 Attempted: No Labor Anesthesia: None LABOR INFORMATION Reason for Induction: Not Applicable Oxytocin: N/A Group B Beta Strep: Negative Antibiotics # of Doses: 2 Antibiotics Time of Last Dose: 0915 Steroids Given: Full Course Reason Steroids Not Administered: Not Applicable MEMBRANES Membranes Rupture Method: Artificial Rupture of Membranes: 07/01/2016 09:32 Length of Rupture (hr): 0.00 Amniotic Fluid Color: Clear Amniotic Fluid Amount: Small Amniotic Fluid Odor: Normal STAGES OF LABOR Stage 3 hr: 0 Stage 3 min: 1 CSECTION DELIVERY Primary Indication: Other Other Primary Indication: prev. c/s in labor CSection Urgency: Emergency CSection Incidence: Repeat Labor: Labor Elective: Nonelective CSection Incision: Lower Uterine Transverse BABY A INFORMATION Delivery Date/Time: 07/01/2016 09:32 Method of Delivery: Born in Route : No : N/A Forceps: N/A Vacuum Extraction: N/A Shoulder Dystocia : No SHOULDER DYSTOCIA BABY A Delivery Date/Time: 07/01/2016 09:32 PRESENTATION/POSITION BABY A Presentation: Cephalic Cephalic Presentation: Vertex Vertex Position: Left Occipital Transverse Breech Presentation: N/A PLACENTA INFORMATION BABY A Placenta Delivery Time : 07/01/2016 09:33 Placenta Method of Delivery: Manual Removal Placenta Status: Delivered SCORES BABY A Heart Rate 1 min: >100 bpm Resp Effort 1 min: Good Cry Reflex Irritability 1 min: Cough/Sneeze/Pulls Away Muscle Tone 1 min: Active Motion Color 1 min: Blue/Pale Resuscitation Effort 1 min: Tactile Stimulation SCORE 1 MIN: 8 Heart Rate 5 min: >100 bpm Resp Effort 5 min: Good Cry Reflex Irritability 5 min: Cough/Sneeze/Pulls Away Muscle Tone 5 min: Active Motion Color 5 min: Body [place], Extremit Blue SCORE 5 MIN: 9 INFANT INFORMATION BABY A Gestational Age at Delivery: 38.0 Gestational Status: Early Term- 37- 38.6 Weeks Infant Outcome : Liveborn Condition : Stable Sex: Male IDENTIFICATION/MEDS BABY A ID Band Number: [id number] ID Band Location: Right Leg; Left Arm Sensor Applied: Yes Sensor Number: [id number] Sensor Location : Cord Clamp WEIGHT/LENGTH BABY A Birthweight (gm): 3610 Infant Weight (lb): 7 Infant Weight (oz): 15 Infant Length (in): 20.50 Length (cm): 52.07 CORD INFORMATION BABY A No. 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
[2016-07-01 12:30] VITALS: BP 104/65; PULSE 83; RESP 18
[2016-07-01] MEDS: CLINDAMYCIN 300 MG CAP PO SCH ×2 (12:58→18:00)
[2016-07-01] MEDS ORDERED: LANOLIN 7 GM TUBE TOP PRN (13:00)
[2016-07-01] MEDS ORDERED: ACETAMINOPHEN/CODEINE #3 TAB PO PRN (13:00)
[2016-07-01] MEDS ORDERED: NA PHOSPHATE/BIPHOS 133 ML ENEMA PR PRN (13:00)
[2016-07-01] MEDS: CEFAZOLIN 2 GM/50 ML (PMX) 50 ML IVPB SCH ×2 (13:19→21:24)
[2016-07-01] MEDS: KETOROLAC 30 MG INJ IV PRN (13:35)
[2016-07-01] MEDS: IBUPROFEN 800 MG TAB PO SCH ×2 (14:00→21:25)
[2016-07-01 16:26] VITALS: BP 108/64; PULSE 67; RESP 19
[2016-07-01 19:30] VITALS: BP 101/75; PULSE 78; RESP 20
[2016-07-01] MEDS: SENNA/DOCUSATE NA (8.6MG/50MG) TAB PO SCH (21:00)
[2016-07-02] VITALS: BP 110/64; PULSE 79; RESP 20
[2016-07-02] MEDS: LACTATED RINGER'S 1,000 ML IV SCH (01:11)
[2016-07-02 04:04] VITALS: BP 101/59; PULSE 77; RESP 20
[2016-07-02] MEDS: CEFAZOLIN 2 GM/50 ML (PMX) 50 ML IVPB SCH (04:29)
[2016-07-02] MEDS: KETOROLAC 30 MG INJ IV PRN (05:27)
[2016-07-02] MEDS: IBUPROFEN 800 MG TAB PO SCH ×3 (06:00→21:09)
[2016-07-02] MEDS: CLINDAMYCIN 300 MG CAP PO SCH ×4 (06:00→17:23)
[2016-07-02 07:34] LABS: BASOPHILS % 0.2 % (0.0-2.0); EOSINOPHILS # 0.1 10^3/ul (0.0-0.5); EOSINOPHILS % 0.8 % (0.0-7.0); HEMOGLOBIN 8.9 g/dl (12.0-16.0); LYMPHOCYTES # 3.1 10^3/ul (0.8-2.9); LYMPHOCYTES % 29.9 % (15.0-51.0); MEAN CORPUSCULAR HGB CONC 34.3 g/dl (32.0-37.0); MEAN CORPUSCULAR VOLUME 90.4 fl (82.0-101.0); MEAN PLATELET VOLUME 9.1 fl (7.4-10.4); MONOCYTE # 0.6 10^3/ul (0.3-0.9); MONOCYTES % 5.9 % (0.0-11.0); NEUTROPHIL # 6.6 10^3/ul (1.6-7.5); NEUTROPHILS % 63.2 % (39.0-77.0); PLATELET COUNT 198 10^3/UL (140-440); RED BLOOD COUNT 2.88 10^6/ul (4.20-5.40); RED CELL DISTRIBUTION WIDTH 13.5 % (11.5-14.5); UNCORRECTED WBC 10.4 10^3/ul (4.8-10.8); WHITE BLOOD COUNT 10.4 10^3/ul (4.8-10.8)
[2016-07-02 07:45] VITALS: BP 106/54; PULSE 74; RESP 19
[2016-07-02 08:01] LABS: CONDITION 1
[2016-07-02] MEDS: SENNA/DOCUSATE NA (8.6MG/50MG) TAB PO SCH ×2 (09:28→21:09)
[2016-07-02] MEDS ORDERED: BISACODYL 10 MG SUPP PR ONE (09:30)
[2016-07-02 11:58] VITALS: BP 110/52; PULSE 70; RESP 18
[2016-07-02] MEDS: OXYCODONE/ACETAMINOPHEN (5/325) TAB PO PRN ×2 (14:38→23:53)
[2016-07-02 16:00] VITALS: BP 100/58; PULSE 87; RESP 18
--- NOTE | 2016-07-02 16:45 | PN ---
Date/Time of Note Date/Time of Note DATE: 07/02/16 TIME: 16:41 Assessment/Plan VTE Prophylaxis VTE Prophylaxis Intervention: ambulation Lines/Catheters IV Catheter Type (from Nrs): Peripheral IV Assessment/Plan Assessment/Plan S/P C/S POD # 1 will advance diet and ambulate Subjective 24 Hr Interval Summary NO BM passing flatus Exam/Review of Systems Vital Signs Vitals Vital Signs Date Time Temp Pulse Resp B/P Pulse Ox O2 Delivery O2 Flow Rate FiO2 07/02/16 16:00 98.0 87 18 100/58 07/02/16 11:58 Room Air 07/02/16 04:30 96 21 Intake and Output 07/01/16 07/01/16 07/02/16 15:00 23:00 07:00 Intake Total 975 ml 1000 ml Output Total 2300 ml 900 ml 1800 ml Balance -1325 ml -900 ml -800 ml Exam Free Text/Dictation general P/E: NL abdomen: soft BS + Incision: covered Results Result Diagram: 07/02/16 0610 NADIR WALTON MD Jul 02, 2016 16:45
[2016-07-02 19:45] VITALS: BP 109/59; PULSE 81; RESP 18
[2016-07-03] MEDS: CLINDAMYCIN 300 MG CAP PO SCH ×5 (00:01→23:49)
[2016-07-03 04:35] VITALS: BP 101/55; RESP 18
[2016-07-03] MEDS: IBUPROFEN 800 MG TAB PO SCH ×3 (05:52→21:50)
[2016-07-03 07:30] VITALS: BP 110/62; PULSE 86; RESP 20
[2016-07-03] MEDS: SENNA/DOCUSATE NA (8.6MG/50MG) TAB PO SCH ×2 (09:00→20:58)
[2016-07-03] MEDS: OXYCODONE/ACETAMINOPHEN (5/325) TAB PO PRN ×2 (10:13→20:58)
[2016-07-03] MEDS ORDERED: LACTATED RINGER'S 1,000 ML IV SCH (13:04)
--- NOTE | 2016-07-03 15:45 | DS ---
Date/Time of Note Date/Time of Note home enxt day DATE: 07/03/16 TIME: 15:44 Obstetrical Discharge Record Final Diagnosis Final Diagnosis: Term delivered Other Final Diagnosis S/P repeat C/S Section Section: Repeat Condition on Discharge Physical Assessment Last Vitals: see nurses notes Voiding: Yes Bowel Movement: Yes Breast: Soft, non-tender, Filling Fundus: Firm Abdomen and Incision: soft BS + Incision: Healing well Episiotomy: NA Calf Tenderness: No Patient Condition: Good NADIR WALTON MD Jul 03, 2016 15:45
--- NOTE | 2016-07-03 15:47 | DS ---
Date/Time of Note Date/Time of Note DATE: 07/03/16 TIME: 15:45 Discharge Summary Admission/Discharge Info Admit Date/Time Jul 01, 2016 at 01:00 Discharge Date/Time 07/04/2016 Final Diagnosis S/P repeat C?S Patient Condition: Good Procedures repeat C/S Hx of Present Illness 30 y/o female had repeat C/S Hospital Course uncomplicated Home Meds Active Scripts [NIFEdipine] 10 MG CAP No Conflict Check, 20 MG PO Q6, #60 0 Refills Prov:NADIR WALTON MD 06/23/16 Ferrous Sulfate* (Ferrous Sulfate*) 325 Mg Tabec, 325 MG PO BID, #60 TAB Prov:MARISSA PADRON NP 02/10/15 Reported Medications Calcium Citrate* (Citracal*) 950 Mg Tab, 950 MG PO BID, TAB 06/30/16 Vit-Iron Fumarate-FA ( Vitamin Tablet) 1 Each Tablet, 1 TAB PO DAILY, TAB 06/30/16 Follow-up Plan 2 days in clinic for staple removal NADIR WALTON MD Jul 03, 2016 15:47
--- NOTE | 2016-07-03 15:48 | PD.PPDC ---
CALL MANAGER Discharge Instruction Provider Information Physician Information 30 y/o female had repeat C/S Diagnosis Final Diagnosis: S/P C/S Condition Patient Condition: Good Diet Diet: Resume Regular Diet Activity/Restrictions Activity: October Shower Restrictions: No Exercising No Lifting Nothing in the Vagina Return to Work or School: Aug 30, 2016 Wound/Drain Care Instructions Wound/Drain Care Instructions: Keep clean and dry Follow-up Follow-up with Physician: 2, Day/Days Provider Information: in clinic for staple removal Return to clinic for PROJECT MANAGEMENT PROFESSOR Instructions: Fever greater than 101 Chills Excessive Vaginal Bleeding OB Instructions: Breast Tenderness Depression Surgical Instructions: Incisional Drainage Incisional Redness NADIR WALTON MD Jul 03, 2016 15:48
[2016-07-03] MEDS ORDERED: IBUP800T25 PO (15:49)
[2016-07-03] MEDS ORDERED: PERCOCET PO (15:49)
[2016-07-03 16:00] VITALS: BP 110/67; PULSE 77; RESP 18
[2016-07-03 19:40] VITALS: BP 95/58; PULSE 18; RESP 18
[2016-07-04 04:00] VITALS: BP 114/65; PULSE 65; RESP 17
[2016-07-04] MEDS: IBUPROFEN 800 MG TAB PO SCH ×2 (05:26→13:41)
[2016-07-04] MEDS: CLINDAMYCIN 300 MG CAP PO SCH ×2 (05:26→12:54)
[2016-07-04 07:35] VITALS: BP 104/58; PULSE 67; RESP 20
[2016-07-04] MEDS ORDERED: MEASLES,MUMPS,RUBELLA VACCINE INJ SC* ONE (09:00)
[2016-07-04] MEDS ORDERED: DIPHTH/TET/ACEL PERTUSS (ADULT) 0.5 ML VIAL IM* ONE (09:00)
[2016-07-04] MEDS: SENNA/DOCUSATE NA (8.6MG/50MG) TAB PO SCH (09:49)
[2016-07-04] MEDS: OXYCODONE/ACETAMINOPHEN (5/325) TAB PO PRN (09:49)
== END 2016-07-04 14:55 | disposition home or self-care (01) | DRG 766 ==
LOC: L-D 21:57 → OBT 21:57 → L-D 07-01 01:00 → OBT 07-01 01:00 → L-D 07-01 01:34 → PP1 07-01 12:40
PROVIDERS: ADMIT Obstetrics & Gynecology; ATTEND Obstetrics & Gynecology
PROC: 10D00Z1 Extraction of Products of Conception, Low, Open Approach (ICD-10-PCS; principal; 2016-07-01 09:00)
PROC: 3E00X4Z Introduction of Serum, Toxoid and Vaccine into Skin and Mucous Membranes, External Approach (ICD-10-PCS; 2016-07-04)
DX: O34.211 Maternal care for low transverse scar from previous cesarean delivery (principal); Z23 Encounter for immunization; Z3A.38 38 weeks gestation of pregnancy; Z37.0 Single live birth
CPT/HCPCS: 36415; 76817; 76818; 85025; 85610; 85730; 86592; 86850; 86900; 86901; 86920; 87340; 90715; 94760; 96360; 99464; G0463; J0290; J0690; J1100; J1170; J1200; J1885; J2250; J2274; J2370; J2405; J2590; J3010; J3105; J7120

== ENCOUNTER 2016-12-08 18:58 | Emergency (ER) | payer SELFPAY ==
[~2016-12-08 18:58] MED LIST changes: +CITRACAL PO; +IBUP800T25 PO; -NIFEdipine PO; +PERCOCET PO; +PREN1TAB62 PO
== END 2016-12-08 20:55 | disposition left against medical advice (07) ==
LOC: E/R 18:58
DX: Z53.21 Procedure and treatment not carried out due to patient leaving prior to being seen by health care provider (principal)

== ENCOUNTER 2017-01-14 16:46 | Emergency (ER) | payer OTHER ==
[~2017-01-14] VITALS: Wt 65.0 kg
[2017-01-14] MEDS ORDERED: LIDOCAINE/MYLANTA 40 ML BTL PO ONE (17:30)
[2017-01-14] MEDS ORDERED: FAMOTIDINE 20 MG TAB PO ONE (17:30)
[2017-01-14 17:36] LABS: BASOPHILS % 0.4 % (0.0-2.0); EOSINOPHILS # 0.2 10^3/ul (0.0-0.5); EOSINOPHILS % 2.4 % (0.0-7.0); HEMATOCRIT 40.2 % (37.0-47.0); HEMOGLOBIN 13.4 g/dl (12.0-16.0); LYMPHOCYTES # 2.8 10^3/ul (0.8-2.9); LYMPHOCYTES % 29.9 % (15.0-51.0); MEAN CORPUSCULAR HEMOGLOBIN 30.1 pg (29.0-33.0); MEAN CORPUSCULAR HGB CONC 33.3 g/dl (32.0-37.0); MEAN CORPUSCULAR VOLUME 90.3 fl (82.0-101.0); MEAN PLATELET VOLUME 11.1 fl (7.4-10.4); MONOCYTE # 0.6 10^3/ul (0.3-0.9); MONOCYTES % 6.7 % (0.0-11.0); NEUTROPHIL # 5.6 10^3/ul (1.6-7.5); NEUTROPHILS % 60.4 % (39.0-77.0); PLATELET COUNT 279 10^3/UL (140-415); RED BLOOD COUNT 4.45 10^6/ul (4.20-5.40); WHITE BLOOD COUNT 9.2 10^3/ul (4.8-10.8)
[2017-01-14 17:49] LABS: ADD UMIC YES; UR ASCORBIC ACID NEGATIVE (NEGATIVE); UR BACTERIA FEW /HPF (NONE SEEN); UR BILIRUBIN (Dip) NEGATIVE (NEGATIVE); UR BLOOD (Dip) 1+ mg/dL (NEGATIVE); UR CLARITY CLEAR (CLEAR); UR COLOR YELLOW (YELLOW); UR GLUCOSE (Dip) NEGATIVE (NEGATIVE); UR KETONES (Dip) NEGATIVE (NEGATIVE); UR LEUKOCYTE ESTERASE (Dip) NEGATIVE Leu/ul (NEGATIVE); UR MUCUS FEW /HPF (NONE SEEN); UR NITRITE (Dip) NEGATIVE (NEGATIVE); UR RBC 1 /HPF (0-5); UR SPECIFIC GRAVITY (Dip) 1.013 (1.003-1.030); UR SQUAMOUS EPITHELIAL CELL FEW /HPF (FEW); UR TOTAL PROTEIN (Dip) NEGATIVE (NEGATIVE); UR UROBILINOGEN (Dip) NEGATIVE (NEGATIVE)
[2017-01-14 17:58] LABS: ALBUMIN 4.9 g/dl (3.3-4.9); ALBUMIN/GLOBULIN RATIO 1.48; BILIRUBIN,INDIRECT 0.2 mg/dl (0-1.1); BILIRUBIN,TOTAL 0.2 mg/dl (0.2-1.3); CALCIUM 9.4 mg/dl (8.4-10.2); CREATININE 0.65 mg/dl (0.44-1.00); TOTAL PROTEIN 8.2 g/dl (6.1-8.1)
--- NOTE | 2017-01-14 18:46 | RADRPT ---
PROCEDURE: CT abdomen and pelvis without IV contrast. CLINICAL INDICATION: Abdominal pain TECHNIQUE: CT scan of the abdomen and pelvis without contrast was performed on the [employer] volumetric [address] scanner. The patient was scanned without intravenous contrast. Coronal and sagittal refo rmatted images were obtained from the axial source images. The CTDI vol is 12.32 mGy and the DLP is 608.95 mGy-cm. COMPARISON: None. FINDINGS: CT abdomen: The lung bases are clear. The heart size is not enlarged and is without pericardial thickening or e ffusion. The liver is normal in size and density and is without focal mass or intrahepatic biliary dilatation . The spleen is normal in size and homogeneous in density. The stomach is grossly unremarkable. T he pancreas as visualized is normal. The gallbladder and biliary tree are unremarkable and there is no evidence for common bile duct dilatation. The adrenal glands are symmetric and normal. The kid neys are symmetrically unremarkable as well. No renal calculus or obstructive uropathy or mass lesi on is seen. The aorta is of normal in caliber. There is no retroperitoneal lymphadenopathy. The new hepatis region is clear. The large bowel is stool-filled. Calcified mesenteric lymph nodes are seen. The s mall and large bowel and mesentery, as visualized, are otherwise unremarkable. The normal appendix i s identified. CT pelvis: The pelvic organs are normal. The pelvic sidewalls and inguinal regions are clear. No pelvic mass, lymphadenopathy, or free fluid is seen. No acute inflammation is seen. The urinary bladder is wit hin normal limits. The surrounding osseous structures are unremarkable. No osteolytic or osteoblastic lesion is detect ed. IMPRESSION: 1. No acute pathology in the abdomen and pelvis. 2. Stool filled large bowel. 3. Calcified mesenteric lymph nodes which may be from old granulomatous disease. RPTAT: HPNM Physician Lili Date Time Electronically viewed and signed by Physician Lili on 01/14/2017 18:46 /
[2017-01-14] MEDS ORDERED: POLY17PO6 PO (19:25)
[2017-01-14] MEDS ORDERED: FAMO-96 PO (19:25)
--- NOTE | 2017-01-14 19:38 | ERD ---
ER Documentation Chief Complaint Date/Time DATE: 01/14/17 TIME: 19:33 Chief Complaint ABD PAIN X 1 WEEK HPI 31-year-old female patient with no significant past medical history presents the ED complaining of abdominal pain that started intermittently 1 week ago. Reports that it is a sharp pain and feels tight. States that she has a ball inside of her abdomen. Reports that the pain is predominantly in her epigastric region and she feels pinches diffusely all over her abdomen. Reports that she had a 6 months ago. States that she has not had an actual menses. Reports that she has some slight pebble-like stools. Denies any vaginal bleeding, vaginal discharge, nausea, vomiting, diarrhea. Denies any chest pain, shortness of breath, wheezing. ROS All systems reviewed and are negative except as per history of present illness. Medications Home Meds Active Scripts Famotidine* (Pepcid*) 20 Mg Tablet, 20 MG PO BID, #30 TAB Prov:TORIE RODRIGUEZ PA-C 01/14/17 Polyethylene Glycol* (Miralax*) 17 Gm Powd.pack, 17 GM PO DAILY, #7 Prov:TORIE RODRIGUEZ PA-C 01/14/17 Oxycodone Hcl/Acetaminophen (Percocet) 1 Tab Tab, 2 TAB PO Q4H Y for PAIN LEVEL 6-10, #30 TAB 0 Refills Prov:NADIR WALTON MD 07/03/16 Ibuprofen* (Ibuprofen*) 800 Mg Tablet, 800 MG PO Q8, #20 TAB 0 Refills Prov:NADIR WALTON MD 07/03/16 Ferrous Sulfate* (Ferrous Sulfate*) 325 Mg Tabec, 325 MG PO BID, #60 TAB Prov:MARISSA PADRON NP 02/10/15 Reported Medications Calcium Citrate* (Citracal*) 950 Mg Tab, 950 MG PO BID, TAB 06/30/16 Vit-Iron Fumarate-FA ( Vitamin Tablet) 1 Each Tablet, 1 TAB PO DAILY, TAB 06/30/16 Allergies Allergies: Coded Allergies: No Known Allergy (Unverified , 06/30/16) PMhx/Soc History of Surgery: Yes (C-SEC) Anesthesia Reaction: No Hx Neurological Disorder: No Hx Respiratory Disorders: No Hx Cardiac Disorders: No Hx Psychiatric Problems: No Hx Miscellaneous Medical Probl: No Hx Alcohol Use: No Hx Substance Use: No Hx Tobacco Use: No Smoking Status: Never smoker Physical Exam Vitals Vital Signs Date Time Temp Pulse Resp B/P Pulse Ox O2 Delivery O2 Flow Rate FiO2 01/14/17 16:47 98.0 78 18 122/78 99 Physical Exam Const: Gnf-[id number]-eyqkagoun, well-nourished. In no acute distress. Head: Atraumatic, normocephalic Eyes: Normal Conjunctiva without injection. No purulent discharge. ENT: Normal external ear, nose. Moist oropharynx without tonsillar exudates. Non -erythematous pharynx. Uvula midline. No drooling. No trismus. Neck: No cervical midline tenderness. Full range of motion. No meningismus. No cervical lymphadenopathy. No JVD. Resp: Clear to auscultation bilaterally. No wheezing, rhonchi, rales, or crackles. No accessory muscle use. No retractions. Cardio: Regular rate and rhythm. No murmurs, rubs or gallops. Abd: Soft, diffuse tenderness, non distended. Normal bowel sounds. No palpable masses. No rebound tenderness. No guarding. Negative McBurney's point. Negative psoas sign. Negative obturator sign. Skin: No petechiae or rashes Back: No midline tenderness. No CVA tenderness. Ext: No cyanosis, or edema. Neur: Awake and alert. Normal gait. Normal coordination. Psych: Normal Mood and Affect Result Diagram: 01/14/17 1718 01/14/17 1718 Results 24 hrs Laboratory Tests Test 01/14/17 17:18 White Blood Count 9.210^3/ul Red Blood Count 4.4510^6/ul Hemoglobin 13.4g/dl Hematocrit 40.2% Mean Corpuscular Volume 90.3fl Mean Corpuscular Hemoglobin 30.1pg Mean Corpuscular Hemoglobin Concent 33.3g/dl Red Cell Distribution Width 13.0% Platelet Count 03095^3/UL Mean Platelet Volume 11.1fl Neutrophils % 60.4% Lymphocytes % 29.9% Monocytes % 6.7% Eosinophils % 2.4% Basophils % 0.4% Nucleated Red Blood Cells % 0.0/100WBC Neutrophils # 5.610^3/ul Lymphocytes # 2.810^3/ul Monocytes # 0.610^3/ul Eosinophils # 0.210^3/ul Basophils # 0.010^3/ul Nucleated Red Blood Cells # 0.010^3/ul Urine Color YELLOW Urine Clarity CLEAR Urine pH 6.0 Urine Specific [place] 1.013 Urine Ketones NEGATIVEmg/dL Urine Nitrite NEGATIVEmg/dL Urine Bilirubin NEGATIVEmg/dL Urine Urobilinogen NEGATIVEmg/dL Urine Leukocyte Esterase NEGATIVELeu/ul Urine Microscopic RBC 1/HPF Urine Microscopic WBC 1/HPF Urine Squamous Epithelial Cells FEW/HPF Urine Bacteria FEW/HPF Urine Mucus FEW/HPF Urine Hemoglobin 1+mg/dL Urine Glucose NEGATIVEmg/dL Urine Total Protein NEGATIVEmg/dl Sodium Level 143mmol/L Potassium Level 4.0mmol/L Chloride Level 98mmol/L Carbon Dioxide Level 30mmol/L Anion Gap 19 Blood Urea Nitrogen 14mg/dl Creatinine 0.65mg/dl Glucose Level 121mg/dl Calcium Level 9.4mg/dl Total Bilirubin 0.2mg/dl Direct Bilirubin 0.00mg/dl Indirect Bilirubin 0.2mg/dl Aspartate Amino Transf (AST/SGOT) 38IU/L Alanine Aminotransferase (ALT/SGPT) 101IU/L Alkaline Phosphatase 79IU/L Total Protein 8.2g/dl Albumin 4.9g/dl Globulin 3.30g/dl Albumin/Globulin Ratio 1.48 Lipase 116U/L Current Medications Medications (Trade) Dose Ordered Sig/[place] Route PRN Reason Start Time Stop Time Status Last Admin Dose Admin Miscellaneous Medication (Gi Cocktail (2)) 40 ml ONCE ONCE PO 01/14/17 17:30 01/14/17 17:31 DC 01/14/17 17:28 Famotidine (Pepcid) 20 mg ONCE ONCE PO 01/14/17 17:30 01/14/17 17:31 DC 01/14/17 17:28 Procedures/MDM This is a 31-year-old female patient with no sniffing a past medical history presents the ED complaining of abdominal pain that started 1 week ago. Patient is afebrile and nontoxic-appearing. Patient has normal vital signs. Patient was further worked up with CBC, CMP, lipase, UA, urine , Patient's pain and symptoms have improved after treatment with CBC: No leukocytosis. No e/o of systemic infection. No e/o anemia. CMP: No e/o severe acidosis, alkalosis, renal failure, diabetic ketoacidosis, liver disease Lipase within normal limits. Urine: No leukocyte esterase, no nitrites, no hematuria. Urine : Negative PROCEDURE: CT abdomen and pelvis without IV contrast. CLINICAL INDICATION: Abdominal pain TECHNIQUE: CT scan of the abdomen and pelvis without contrast was performed on the [employer] volumetric [address] scanner. The patient was scanned without intravenous contrast. Coronal and sagittal reformatted images were obtained from the axial source images. The CTDI vol is 12.32 mGy and the DLP is 608.95 mGy-cm. COMPARISON: None. FINDINGS: CT abdomen: The lung bases are clear. The heart size is not enlarged and is without pericardial thickening or effusion. The liver is normal in size and density and is without focal mass or intrahepatic biliary dilatation. The spleen is normal in size and homogeneous in density. The stomach is grossly unremarkable. The pancreas as visualized is normal. The gallbladder and biliary tree are unremarkable and there is no evidence for common bile duct dilatation. The adrenal glands are symmetric and normal. The kidneys are symmetrically unremarkable as well. No renal calculus or obstructive uropathy or mass lesion is seen. The aorta is of normal in caliber. There is no retroperitoneal lymphadenopathy. The new hepatis region is clear. The large bowel is stool- filled. Calcified mesenteric lymph nodes are seen. The small and large bowel and mesentery, as visualized, are otherwise unremarkable. The normal appendix is identified. CT pelvis: The pelvic organs are normal. The pelvic sidewalls and inguinal regions are clear. No pelvic mass, lymphadenopathy, or free fluid is seen. No acute inflammation is seen. The urinary bladder is within normal limits. The surrounding osseous structures are unremarkable. No osteolytic or osteoblastic lesion is detected. IMPRESSION: 1. No acute pathology in the abdomen and pelvis. 2. Stool filled large bowel. 3. Calcified mesenteric lymph nodes which may be from old granulomatous disease. A differential diagnosis considered includes but is not limited to gastritis, GERD, peptic ulcer disease, cholecystitis, choledocholithiasis, cholangitis, pancreatitis, appendicitis, bowel obstruction, ileus, volvulus, nephrolithiasis , pyelonephritis, hepatitis, perforated viscus, diverticulitis, abdominal hernia , acute abdomen, mesenteric ischemia or other emergent conditions. Discharge medications: Famotidine, MiraLAX Follow up with primary care physician in 1-2 days for referral to college counselor. Instructed patient to return to the ED sooner for any worsening symptoms. Patient's questions were answered. Patient understood and agreed with discharge plan. Patient discharged stable. Departure Diagnosis: Primary Impression: Abdominal pain Abdominal location: unspecified location Qualified Code: R10.9 - Abdominal pain, unspecified location Condition: Stable Patient Instructions: Abdominal Pain, Constipation (Adult) Referrals: [facility] (PCP) [facility] YOU HAVE RECEIVED A MEDICAL SCREENING EXAM AND THE RESULTS INDICATE THAT YOU DO NOT HAVE A CONDITION THAT REQUIRES URGENT TREATMENT IN THE EMERGENCY DEPARTMENT. FURTHER EVALUATION AND TREATMENT OF YOUR CONDITION CAN WAIT UNTIL YOU ARE SEEN IN YOUR DOCTORS OFFICE WITHIN THE NEXT 1-2 DAYS. IT IS YOUR RESPONSIBILITY TO MAKE AN APPOINTMENT FOR FOLOW-UP CARE. IF YOU HAVE A PRIMARY DOCTOR --you should call your primary doctor and schedule an appointment IF YOU DO NOT HAVE A PRIMARY DOCTOR YOU CAN CALL OUR PHYSICIAN REFERRAL HOTLINE AT IF YOU CAN NOT AFFORD TO SEE A PHYSICIAN YOU CAN CHOSE FROM THE FOLLOWING [facility] [address] [facility]. [facility] [address] [facility]. [facility] [address] [facility] [facility] [address] [facility] [address] [facility]. [facility]. [address] [facility]. [facility] YOU HAVE RECEIVED A MEDICAL SCREENING EXAM AND THE RESULTS INDICATE THAT YOU DO NOT HAVE A CONDITION THAT REQUIRES URGENT TREATMENT IN THE EMERGENCY DEPARTMENT. FURTHER EVALUATION AND TREATMENT OF YOUR CONDITION CAN WAIT UNTIL YOU ARE SEEN IN YOUR DOCTORS OFFICE WITHIN THE NEXT 1-2 DAYS. IT IS YOUR RESPONSIBILITY TO MAKE AN APPOINTMENT FOR FOLOW-UP CARE. IF YOU HAVE A PRIMARY DOCTOR --you should call your primary doctor and schedule and appointment IF YOU DO NOT HAVE A PRIMARY DOCTOR YOU CAN CALL OUR PHYSICIAN REFERRAL HOTLINE AT . IF YOU CAN NOT AFFORD TO SEE A PHYSICIAN YOU CAN CHOSE FROM THE FOLLOWING [facility] INSTITUTIONS: [facility] [address] [place] [address] [facility] [address] [place] [address] [facility] + [facility] [address] [place] [address] [facility] URGENT CARE/SPECIALTIES Additional Instructions: Call your primary care doctor TOMORROW for an appointment during the next 2-3 days.See the doctor sooner or return here if your condition worsens before your appointment time. TORIE RODRIGUEZ PA-C Jan 14, 2017 19:38
== END 2017-01-14 19:43 | disposition home or self-care (01) ==
LOC: FTE 16:46
DX: R10.84 Generalized abdominal pain (principal)
CPT/HCPCS: 36415; 74176; 80053; 81001; 83690; 85025

== ENCOUNTER 2017-08-18 22:56 | Emergency (ER) | END 2017-08-19 04:11 | disposition home or self-care (01) ==